=== PATIENT | male | born 1965 | race Caucasian/White ===

== ENCOUNTER 2017-10-05 09:16 | Emergency (ER) | payer OTHER ==
[2017-10-05 09:31] VITALS: TEMP 97.7
--- NOTE | 2017-10-05 09:51 | ED PDOC ---
Arrival/HPI - General Chief Complaint: Lower Extremity Problem/Injury Time Seen by Provider: 10/05/17 09:50 Historian: Patient, Family - History of Present Illness Narrative History of Present Illness (Text): 10/05/17 09:51 This 52 yo male presents to this ED c/o right great toe injury x 4 hours. Patient stated a metal heavy object fell on his toe at his job. Patient noted his toe is bruised, swollen, painful, with a 1 cm blister filled with serous fluids. Patient denies other complains. last tetanus < 5 years. Denies other complains. Time/Duration: Other (noncontributory) Context: Home Past Medical History - Provider Review Nursing Documentation Reviewed: Yes - Cardiac Hx Cardiac Disorders: Yes Hx Hypertension: Yes - Pulmonary Hx Respiratory Disorders: No - Neurological Hx Neurological Disorder: No - HEENT Hx HEENT Disorder: No - Renal Hx Renal Disorder: No - Endocrine/Metabolic Hx Endocrine Disorders: No - Hematological/Oncological Hx Blood Disorders: No - Integumentary Hx Dermatological Disorder: No - Musculoskeletal/Rheumatological Hx Musculoskeletal Disorders: No - Gastrointestinal Hx Gastrointestinal Disorders: No - Genitourinary/Gynecological Hx Genitourinary Disorders: No - Psychiatric Hx Psychophysiologic Disorder: No Hx Substance Use: No Family/Social History - Physician Review Nursing Documentation Reviewed: Yes Family/Social History: Other (noncontributory) Smoking Status: Heavy Smoker > 10 Cigarettes Daily Hx Alcohol Use: No Hx Substance Use: No Allergies/Home Meds Allergies/Adverse Reactions: Allergies No Known Allergies Allergy (Verified 10/05/17 09:25) Review of Systems - Review of Systems Constitutional: Normal. absent: Fatigue, Weight Change, Fevers Eyes: Normal ENT: Normal Respiratory: Normal Cardiovascular: Normal Gastrointestinal: Normal Genitourinary Male: Normal Musculoskeletal: Other (right great toe pain/trauma) Skin: Normal Neurological: Normal Endocrine: Normal Hemo/Lymphatic: Normal Psychiatric: Normal Physical Exam Vital Signs Temp Pulse Resp BP Pulse Ox 10/05/17 09:30 97.7 F 75 17 177/95 H 100 Temperature: Afebrile Blood Pressure: Normal Pulse: Regular Respiratory Rate: Normal Appearance: Positive for: Well-Appearing, Non-Toxic, Comfortable Pain Distress: None Mental Status: Positive for: Alert and Oriented X 3 - Systems Exam Head: Present: Atraumatic, Normocephalic Mouth: Present: Moist Mucous Membranes Neck: Present: Normal Range of Motion Upper Extremity: Present: Normal Inspection, Normal ROM Lower Extremity: Present: NORMAL PULSES, Tenderness ((+) right great toe is swollen with ecchymosis. Tender on palpation. Toe nail is intact. There is a 1 cm blister-like with serous fluid filled. No abrasion or laceration. No deformity), Swelling, Neurovascularly Intact, Capillary Refill < 2 s. No: Edema , CALF TENDERNESS, Daisy's Sign, Erythema, Deformity, Temperature Abnormalties Neurological: Present: GCS=15, CN II-XII Intact, Speech Normal Skin: Present: Warm, Dry, Normal Color. No: Rashes Psychiatric: Present: Alert, Oriented x 3, Normal Insight, Normal Concentration Medical Decision Making ED Course and Treatment: 10/05/17 10:43 I reviewed x-rays with patient regarding toe Fx. and he will need to see enterprise resource planning consultant in 1-2 days. Recommended RICE. I also recommended ABX. and ortho shoe. He understood the recommendation. Re-evaluation Time: 10:45 Reassessment Condition: Re-examined, Improved - RAD Interpretation Narrative RAD Interpretations (Text): 10/05/17 10:45 Toe x-rays: (+) tuft fracture Radiology Orders: 10/05/17 09:51 FOOT RIGHT 3 VIEWS ROUTINE [RAD] Stat - Medication Orders Current Medication Orders: Discontinued Medications Ibuprofen (Motrin Tab) 600 mg PO STAT STA Stop: 10/05/17 10:12 Disposition/Present on Arrival - Present on Arrival Any Indicators Present on Arrival: No History of DVT/PE: No History of Uncontrolled Diabetes: No Urinary Catheter: No History of Decub. Ulcer: No History Surgical Site Infection Following: None - Disposition Have Diagnosis and Disposition been Completed?: Yes Diagnosis: Toe fracture, right Disposition: HOME/ ROUTINE Disposition Time: 10:47 Patient Plan: Discharge Condition: GOOD Discharge Instructions (ExitCare): Toe Fracture (ED) Additional Instructions: Call private doctor for follow up visit in 1-2 days. Keep foot elevated, ice, rest, ortho shoe. You need to see Foot doctor in 1-2 days. Take medication as instructed. Clean wound daily with soap and water only. 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 return to emergency if pain worsen. Prescriptions: Cephalexin [cephalexin] 500 mg PO QID #28 cap Famotidine [Pepcid] 40 mg PO DAILY #10 tablet Naproxen 500 mg PO BID PRN #14 tab PRN Reason: Pain, Severe (8-10) Referrals: Scarlet Collazo, [Primary Care Provider] - Follow up with primary Mala Haney DPM [Staff Provider] - Follow up with primary Forms: [employer] (Sammarinese), WORK NOTE
[2017-10-05 11:31] VITALS: BP 182/90; PULSE 70; RESP 16; O2SAT 98
--- NOTE | 2017-10-05 12:55 | RAD ---
PROCEDURE: Right Foot Radiographs. HISTORY: toe injury/pain COMPARISON: None. FINDINGS: BONES: Bone alignment and mineralization are normal. There is no acute displaced fracture or bone destruction. There is a small plantar calcaneal spur. 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 The remaining joint spaces are preserved. SOFT TISSUES: There is mild periarticular soft tissue at the 1st MTP joint. OTHER FINDINGS: None. IMPRESSION: No acute fracture or dislocation.
== END 2017-10-05 11:31 | disposition home or self-care (01) ==
LOC: ED 09:16
DX: S92.401A Displaced unspecified fracture of right great toe, initial encounter for closed fracture (principal); W20.8XXA Other cause of strike by thrown, projected or falling object, initial encounter; Y92.9 Unspecified place or not applicable